=== PATIENT | male | born 1995 ===

== ENCOUNTER 2021-06-07 13:50 | Outpatient (REF) | payer SELFPAY | END 2021-06-07 13:51 | disposition home or self-care (01) | LOC: HO.HAP 13:50 | PROVIDERS: Visit Provider Otolaryngology | DX: Z46.1 Encounter for fitting and adjustment of hearing aid (principal); H90.3 Sensorineural hearing loss, bilateral | CPT/HCPCS: V5011; V5020; V5160; V5261 ==

== ENCOUNTER 2025-03-10 10:22 | Outpatient (REF) | payer SELFPAY | END 2025-03-10 10:23 | disposition home or self-care (01) | LOC: HO.HAP 10:22 | PROVIDERS: Visit Provider Physician Assistant Medical | DX: H90.3 Sensorineural hearing loss, bilateral (principal) | CPT/HCPCS: 92593; 92700 ==